=== PATIENT | female | born 1995 | race Caucasian/White ===

== ENCOUNTER 2016-12-08 14:36 | Emergency (ER) | payer BC, MEDICAID ==
[~2016-12-08] VITALS: Ht 157.5 cm; Wt 54.4 kg
[~2016-12-08 14:36] MED LIST: CIPR-173 PO; NAPR-607 PO; PRENTAB40 PO
[2016-12-08] MEDS ORDERED: ONDANSETRON HCL 4 MG/2 ML VIAL IV ONE (21:45)
[2016-12-08] MEDS ORDERED: SODIUM CHLORIDE 0.9% 1,000 ML IV ONE (21:45)
[2016-12-08] MEDS ORDERED: HYDROmorphone HCL 2 MG/ML VL IV ONE (21:45)
[2016-12-08] MEDS ORDERED: VANCOMYCIN 1GM/250ML D5W 250 ML IV ONE (21:45)
[2016-12-08 22:00] LABS: Basophils # (auto) 0 uL; Basophils % (auto) 0.6 % (0.0-2.0); Eosinophils # (auto) 0.2 uL; Eosinophils % (auto) 2.7 % (0.0-7.0); Hematocrit 31.6 % (36.0-46.0); Hemoglobin 10.2 g/dL (12.2-16.2); Lymphocytes % (auto) 27.2 % (10.0-50.0); Mean Corpuscular Hgb Conc. 32.2 g/dL (32.0-36.0); Mean Platelet Volume 7.7 fL (7.4-10.4); Monocytes # (auto) 0.7 uL; Monocytes % (auto) 9.8 % (0.0-12.0); Neutrophils # (auto) 4.3 uL; Neutrophils % (auto) 59.7 % (37.0-80.0); Platelet Count (auto) 356 10^3/uL (140-450); Red Cell Distribution Width 12.9 % (11.6-16.0); White Blood Cell 7.3 10^3/uL (4.4-10.8)
[2016-12-08 22:22] LABS: Albumin 3.1 g/dL (3.4-5.0); BUN/Creatinine Ratio 14.5; Bilirubin, Total 0.4 mg/dL (0.2-1.0); Calcium 8.6 mg/dL (8.5-10.1); Potassium 3.8 mmol/L (3.5-5.1); Total Protein 6.4 g/dL (6.4-8.2)
[2016-12-09 03:46] VITALS: BP 122/62
== END 2016-12-09 04:10 | disposition home or self-care (01) ==
LOC: EDBD 14:36 → ER 14:42
DX: L03.116 Cellulitis of left lower limb (principal); F17.210 Nicotine dependence, cigarettes, uncomplicated; Z88.1 Allergy status to other antibiotic agents; Z91.040 Latex allergy status; Z98.890 Other specified postprocedural states; Z91.09 Other allergy status, other than to drugs and biological substances
CPT/HCPCS: 36415; 73700; 80053; 85025; 96365; 96375; 99285; J1170; J2405; J3370

== ENCOUNTER 2016-12-16 20:40 | Emergency (ER) | payer MEDICAID ==
[~2016-12-16] VITALS: Ht 124.5 cm; Wt 57.6 kg
[2016-12-16 21:05] VITALS: BP 119/80
[2016-12-16 21:46] LABS: Basophils # (auto) 0 uL; Basophils % (auto) 0.3 % (0.0-2.0); Eosinophils # (auto) 0.1 uL; Eosinophils % (auto) 1.2 % (0.0-7.0); Hematocrit 36.3 % (36.0-46.0); Hemoglobin 11.5 g/dL (12.2-16.2); Lymphocytes # (auto) 2.2 uL; Lymphocytes % (auto) 23.3 % (10.0-50.0); Mean Corpuscular Hemoglobin 28.5 pg (28.0-32.0); Mean Corpuscular Hgb Conc. 31.7 g/dL (32.0-36.0); Mean Platelet Volume 7.7 fL (7.4-10.4); Monocytes # (auto) 0.8 uL; Monocytes % (auto) 8.4 % (0.0-12.0); Neutrophils # (auto) 6.3 uL; Neutrophils % (auto) 66.8 % (37.0-80.0); Platelet Count (auto) 508 10^3/uL (140-450); Red Cell Distribution Width 13.4 % (11.6-16.0); White Blood Cell 9.5 10^3/uL (4.4-10.8)
[2016-12-16 22:20] LABS: Albumin 3.8 g/dL (3.4-5.0); BUN/Creatinine Ratio 12.2; Calcium 9.1 mg/dL (8.5-10.1); Potassium 4.1 mmol/L (3.5-5.1)
[2016-12-16 22:22] LABS: Bilirubin, Total 0.3 mg/dL (0.2-1.0); Total Protein 7.5 g/dL (6.4-8.2)
== END 2016-12-17 03:30 | disposition left against medical advice (07) ==
LOC: ER 20:44
DX: R20.0 Anesthesia of skin (principal); Z53.21 Procedure and treatment not carried out due to patient leaving prior to being seen by health care provider
CPT/HCPCS: 36415; 80053; 83605; 85025; 85379; 87040

== ENCOUNTER 2016-12-17 07:14 | Emergency (ER) | payer MEDICAID ==
[~2016-12-17] VITALS: Ht 154.9 cm; Wt 57.6 kg
[2016-12-17 08:09] VITALS: BP 124/74
[2016-12-17] MEDS ORDERED: HYDROcodone-ACET 10/325MG TAB PO ONE (09:30)
== END 2016-12-17 11:29 | disposition home or self-care (01) ==
LOC: ER 07:24
DX: L03.116 Cellulitis of left lower limb (principal); Z88.1 Allergy status to other antibiotic agents; Z91.040 Latex allergy status; F17.210 Nicotine dependence, cigarettes, uncomplicated
CPT/HCPCS: 93971

== ENCOUNTER 2018-12-04 15:50 | Emergency (ER) | payer BC, MEDICAID ==
[~2018-12-04] VITALS: Ht 157.5 cm; Wt 68.0 kg
[~2018-12-04 15:50] MED LIST changes: -NAPR-607 PO; +NAPR500T31 PO
[2018-12-04 16:36] LABS: Basophils # (auto) 0 uL; Basophils % (auto) 0.6 % (0.0-2.0); Eosinophils # (auto) 0.1 uL; Eosinophils % (auto) 1.8 % (0.0-7.0); Hematocrit 42.2 % (36.0-46.0); Hemoglobin 14.2 g/dL (12.2-16.2); Lymphocytes # (auto) 1.8 uL; Lymphocytes % (auto) 23.5 % (10.0-50.0); Mean Corpuscular Hemoglobin 30.4 pg (28.0-32.0); Mean Corpuscular Hgb Conc. 33.5 g/dL (32.0-36.0); Mean Corpuscular Volume 90.7 fL (80.0-100.0); Monocytes # (auto) 0.8 uL; Monocytes % (auto) 10.4 % (0.0-12.0); Neutrophils # (auto) 4.8 uL; Neutrophils % (auto) 63.7 % (37.0-80.0); Nucleated Red Blood Cells % 0.1 %; Platelet Count (auto) 290 10^3/uL (140-450); Red Blood Cells 4.65 10^6/uL (4.0-5.20); Red Cell Distribution Width 13.7 % (11.8-14.3); White Blood Cell 7.5 10^3/uL (4.4-10.8)
[2018-12-04 18:16] VITALS: BP 113/74
[2018-12-04 18:48] LABS: Urine Bacteria FEW /hpf (None Seen); Urine Blood 2+ /uL (Negative); Urine Mucus FEW (None Seen); Urine Specific Gravity 1.022 (1.001-1.035); Urine WBC 1 /hpf (0 - 5)
== END 2018-12-04 18:00 | disposition home or self-care (01) ==
LOC: ER 15:54
DX: O20.9 Hemorrhage in early pregnancy, unspecified (principal); O99.331 Smoking (tobacco) complicating pregnancy, first trimester; Z3A.01 Less than 8 weeks gestation of pregnancy; Z88.1 Allergy status to other antibiotic agents; Z88.6 Allergy status to analgesic agent; Z91.040 Latex allergy status
CPT/HCPCS: 36415; 81001; 84702; 85025

== ENCOUNTER 2019-01-20 13:39 | Emergency (ER) | payer SELFPAY ==
[~2019-01-20] VITALS: Ht 157.5 cm; Wt 70.3 kg
[2019-01-20 14:10] VITALS: BP 118/75
[2019-01-20 14:27] LABS: Basophils # (auto) 0 uL; Basophils % (auto) 0.8 % (0.0-2.0); Eosinophils # (auto) 0.1 uL; Eosinophils % (auto) 1.6 % (0.0-7.0); Hematocrit 41.8 % (36.0-46.0); Hemoglobin 13.9 g/dL (12.2-16.2); Lymphocytes # (auto) 1.6 uL; Lymphocytes % (auto) 25.3 % (10.0-50.0); Mean Corpuscular Hgb Conc. 33.3 g/dL (32.0-36.0); Mean Corpuscular Volume 93.2 fL (80.0-100.0); Monocytes # (auto) 0.9 uL; Monocytes % (auto) 13.6 % (0.0-12.0); Neutrophils # (auto) 3.8 uL; Neutrophils % (auto) 58.7 % (37.0-80.0); Nucleated Red Blood Cells % 0.1 %; Platelet Count (auto) 280 10^3/uL (140-450); Red Blood Cells 4.48 10^6/uL (4.0-5.20); Red Cell Distribution Width 13.6 % (11.8-14.3); White Blood Cell 6.4 10^3/uL (4.4-10.8)
[2019-01-20 14:45] LABS: Albumin 3.8 g/dL (3.4-5.0); BUN/Creatinine Ratio 10.4; Potassium 3.7 mmol/L (3.5-5.1)
[2019-01-20 14:47] LABS: Bilirubin, Total 0.7 mg/dL (0.2-1.0); Total Protein 7.8 g/dL (6.4-8.2)
== END 2019-01-20 17:40 | disposition home or self-care (01) ==
LOC: ER 13:39
DX: O20.0 Threatened abortion (principal); Z3A.01 Less than 8 weeks gestation of pregnancy; Z88.1 Allergy status to other antibiotic agents; Z91.040 Latex allergy status
CPT/HCPCS: 36415; 76801; 76817; 80053; 84702; 85025

== ENCOUNTER 2019-02-13 22:48 | Emergency (ER) | payer BC, MEDICAID ==
[~2019-02-13] VITALS: Ht 157.5 cm; Wt 70.3 kg
[2019-02-13 23:32] LABS: Basophils # (auto) 0 uL; Basophils % (auto) 0.5 % (0.0-2.0); Eosinophils # (auto) 0.2 uL; Eosinophils % (auto) 2.1 % (0.0-7.0); Hematocrit 41.5 % (36.0-46.0); Hemoglobin 13.8 g/dL (12.2-16.2); Lymphocytes # (auto) 2.7 uL; Lymphocytes % (auto) 30.2 % (10.0-50.0); Mean Corpuscular Hemoglobin 30.8 pg (28.0-32.0); Mean Corpuscular Hgb Conc. 33.3 g/dL (32.0-36.0); Mean Corpuscular Volume 92.7 fL (80.0-100.0); Monocytes % (auto) 10.8 % (0.0-12.0); Neutrophils % (auto) 56.4 % (37.0-80.0); Nucleated Red Blood Cells % 0.1 %; Platelet Count (auto) 273 10^3/uL (140-450); Red Blood Cells 4.48 10^6/uL (4.0-5.20); Red Cell Distribution Width 13.3 % (11.8-14.3); White Blood Cell 8.9 10^3/uL (4.4-10.8)
[2019-02-13 23:48] LABS: INR 0.98 (0.9-1.15); Prothrombin Time 10.5 sec (9.27-12.13)
[2019-02-13 23:51] LABS: Albumin 3.5 g/dL (3.4-5.0); Calcium 9.1 mg/dL (8.5-10.1); Potassium 3.6 mmol/L (3.5-5.1)
[2019-02-13 23:53] LABS: BUN/Creatinine Ratio 9.2
[2019-02-13 23:57] LABS: Bilirubin, Total 0.4 mg/dL (0.2-1.0)
[2019-02-13 23:58] VITALS: BP 130/79
[2019-02-14] MEDS ORDERED: HYDROcodone-ACET 10/325MG TAB PO ONE (00:45)
[2019-02-14 01:35] LABS: Urine Bacteria FEW /hpf (None Seen); Urine Blood Negative /uL (Negative); Urine Mucus FEW (None Seen); Urine Specific Gravity 1.029 (1.001-1.035); Urine WBC 6 /hpf (0 - 5)
== END 2019-02-14 01:24 | disposition home or self-care (01) ==
LOC: ER 22:52
DX: O03.4 Incomplete spontaneous abortion without complication (principal)
CPT/HCPCS: 36415; 80053; 81001; 84702; 85025; 85610; 85730; 86850; 86900; 86901

== ENCOUNTER 2019-03-09 20:54 | Day surgery (SDC) | payer MEDICAID ==
[~2019-03-09] VITALS: Ht 157.5 cm; Wt 67.1 kg
[2019-03-09 22:04] LABS: Basophils # (auto) 0.1 uL; Basophils % (auto) 0.5 % (0.0-2.0); Eosinophils # (auto) 0 uL; Eosinophils % (auto) 0.3 % (0.0-7.0); Hemoglobin 13.1 g/dL (12.2-16.2); Lymphocytes # (auto) 2.8 uL; Lymphocytes % (auto) 18.3 % (10.0-50.0); Mean Corpuscular Hemoglobin 29.9 pg (28.0-32.0); Mean Corpuscular Hgb Conc. 32.7 g/dL (32.0-36.0); Mean Corpuscular Volume 91.4 fL (80.0-100.0); Monocytes # (auto) 1.5 uL; Monocytes % (auto) 9.6 % (0.0-12.0); Neutrophils # (auto) 10.9 uL; Neutrophils % (auto) 71.3 % (37.0-80.0); Platelet Count (auto) 416 10^3/uL (140-450); Red Blood Cells 4.38 10^6/uL (4.0-5.20); Red Cell Distribution Width 12.9 % (11.8-14.3); White Blood Cell 15.3 10^3/uL (4.4-10.8)
[2019-03-09] MEDS ORDERED: SODIUM CHLORIDE 0.9% 1,000 ML IV ONE (22:15)
[2019-03-09 22:18] LABS: Potassium 3.1 mmol/L (3.5-5.1)
[2019-03-09 22:26] LABS: Albumin 4.3 g/dL (3.4-5.0); BUN/Creatinine Ratio 12.3; Bilirubin, Total 0.6 mg/dL (0.2-1.0); Calcium 9.4 mg/dL (8.5-10.1); Total Protein 7.9 g/dL (6.4-8.2)
[2019-03-09 22:29] LABS: INR 1.04 (0.9-1.15); Partial Thromboplastin Time 29.2 sec (23.78-33.04); Prothrombin Time 11.1 sec (9.27-12.13)
[2019-03-10] MEDS ORDERED: SODIUM CHLORIDE 0.9% 1,000 ML IV ONE (02:45)
[2019-03-10] MEDS ORDERED: ONDANSETRON HCL 4 MG/2 ML VIAL IV ONE ×3 (03:30→11:45)
[2019-03-10] MEDS ORDERED: MORPHINE SULFATE 4 MG/ML SYR/VIAL IV ONE (03:30)
[2019-03-10] MEDS ORDERED: OXYTOCIN 30 UNT in LACTATED RINGER'S 1,000 ML IV ONE (05:45)
[2019-03-10] MEDS ORDERED: MORPHINE SULF INJ 2 MG/ML SYRINGE 1ML IV ONE (07:15)
[2019-03-10 07:34] LABS: Urine Bacteria NONE SEEN /hpf (None Seen); Urine Blood 3+ /uL (Negative); Urine Mucus MODERATE (None Seen); Urine Specific Gravity 1.029 (1.001-1.035); Urine WBC 202 /hpf (0 - 5); Urine WBC Clumps PRESENT /hpf (None Seen)
[2019-03-10] MEDS ORDERED: ceFAZolin 1GM/50ML 50 ML IV ONE (09:46)
[2019-03-10] MEDS ORDERED: LEVOFLOXACIN 500MG 100 ML IV ONE (10:50)
[2019-03-10] MEDS ORDERED: fentaNYL CITRATE 100 MCG/2 ML VL ONE (10:59)
[2019-03-10] MEDS ORDERED: MIDAZOLAM HCL 1MG/1ML-2 ML VIAL ONE (10:59)
[2019-03-10] MEDS ORDERED: PROPOFOL 10 MG/ML 20 ML IV ONE (11:04)
[2019-03-10] MEDS ORDERED: RHO (D) IMMUNE GLOBULIN 300 MCG INJ IM PRN (11:30)
[2019-03-10] MEDS ORDERED: ONDANSETRON HCL 4 MG/2 ML VIAL IV PRN (11:30)
[2019-03-10] MEDS ORDERED: hydrALAZINE HCL 20 MG/ML VL IV PRN (11:45)
[2019-03-10] MEDS ORDERED: ePHEDrine SULFATE 50 MG/ML AMP IV PRN (11:45)
[2019-03-10] MEDS ORDERED: fentaNYL CITRATE 100 MCG/2 ML VL IV ONE (12:00)
[2019-03-10 12:33] VITALS: BP 116/69
== END 2019-03-10 12:43 | disposition home or self-care (01) ==
LOC: EDBD 20:54 → EDUNIT# 20:54 → ER 21:05 → SUR 03-10 09:13 → ER 03-10 09:13 → SUR 03-10 12:43
PROVIDERS: ATTEND Specialist
DX: O03.1 Delayed or excessive hemorrhage following incomplete spontaneous abortion (principal); F41.9 Anxiety disorder, unspecified; F32.9 Major depressive disorder, single episode, unspecified; Z87.59 Personal history of other complications of pregnancy, childbirth and the puerperium; Z88.8 Allergy status to other drugs, medicaments and biological substances; Z88.1 Allergy status to other antibiotic agents; Z91.040 Latex allergy status; Z87.891 Personal history of nicotine dependence; Z72.89 Other problems related to lifestyle; Z82.49 Family history of ischemic heart disease and other diseases of the circulatory system; Z83.3 Family history of diabetes mellitus
CPT/HCPCS: 36415; 59812; 76801; 76817; 80053; 81001; 84702; 85014; 85018; 85025; 85610; 85730; 86850; 86900; 86901; 88305; J0690; J1956; J2250; J2270; J2405; J2704; J3010; J7030

== ENCOUNTER 2019-04-04 13:17 | Emergency (ER) | payer MEDICAID, OTHER ==
[~2019-04-04] VITALS: Ht 157.5 cm; Wt 68.0 kg
[2019-04-04 13:20] VITALS: BP 131/80
[2019-04-04] MEDS ORDERED: MEPERIDINE HCL (50 MG/ML) 1 ML VIAL IM ONE (14:15)
[2019-04-04] MEDS ORDERED: PROMETHAZINE HCL 25 MG/ML 1ML IM ONE (14:15)
[2019-04-04] MEDS ORDERED: MEPERIDINE HCL (25 MG/ML) 1ML VIAL IM ONE ×2 (14:30)
== END 2019-04-04 15:18 | disposition home or self-care (01) ==
LOC: ER 13:17
DX: M54.5 Low back pain (principal); G89.29 Other chronic pain; Z88.0 Allergy status to penicillin; Z88.8 Allergy status to other drugs, medicaments and biological substances; Z91.040 Latex allergy status; Z79.899 Other long term (current) drug therapy
CPT/HCPCS: 96372; 99283; J2175; J2550

== ENCOUNTER 2019-04-06 23:51 | Emergency (ER) | payer OTHER ==
[~2019-04-06] VITALS: Ht 157.5 cm; Wt 68.0 kg
[2019-04-06 23:59] VITALS: BP 136/87
[2019-04-07] MEDS ORDERED: MEPERIDINE HCL (25 MG/ML) 1ML VIAL IM ONE (01:45)
[2019-04-07] MEDS ORDERED: ONDANSETRON ODT 4 MG TAB PO ONE (01:45)
== END 2019-04-07 02:21 | disposition home or self-care (01) ==
LOC: ER 23:51
DX: G89.29 Other chronic pain (principal); M54.5 Low back pain; R51 Headache; M54.2 Cervicalgia; Z87.891 Personal history of nicotine dependence; Z88.1 Allergy status to other antibiotic agents; Z91.040 Latex allergy status
CPT/HCPCS: 96372; 99283; J2175; Q0162

== ENCOUNTER 2019-06-01 13:45 | Emergency (ER) | payer MEDICAID, OTHER ==
[~2019-06-01] VITALS: Ht 157.5 cm; Wt 60.8 kg
[2019-06-01 18:48] LABS: Urine WBC None Seen /hpf (0 - 5)
[2019-06-01 19:20] LABS: Urine Bacteria NONE SEEN /hpf (None Seen); Urine Blood Negative /uL (Negative); Urine Specific Gravity 1.024 (1.001-1.035); Urine Sperm PRESENT /hpf (None Seen)
[2019-06-01] MEDS ORDERED: SODIUM CHLORIDE 0.9% 1,000 ML IV ONE (21:00)
[2019-06-01 21:27] LABS: Basophils # (auto) 0 uL; Basophils % (auto) 0.4 % (0.0-2.0); Lymphocytes # (auto) 2.1 uL; Neutrophils # (auto) 5.4 uL; White Blood Cell 8.5 10^3/uL (4.4-10.8)
[2019-06-01 21:29] LABS: Eosinophils # (auto) 0.1 uL; Eosinophils % (auto) 0.6 % (0.0-7.0); Hematocrit 32.2 % (36.0-46.0); Hemoglobin 10.3 g/dL (12.2-16.2); Lymphocytes % (auto) 24.3 % (10.0-50.0); Mean Corpuscular Hemoglobin 24.4 pg (28.0-32.0); Mean Corpuscular Hgb Conc. 31.9 g/dL (32.0-36.0); Mean Corpuscular Volume 76.4 fL (80.0-100.0); Monocytes % (auto) 11.7 % (0.0-12.0); Platelet Count (auto) 298 10^3/uL (140-450); Red Blood Cells 4.22 10^6/uL (4.0-5.20); Red Cell Distribution Width 19.5 % (11.8-14.3)
[2019-06-01 21:39] VITALS: BP 109/58
[2019-06-01 21:51] LABS: Albumin 3.5 g/dL (3.4-5.0); BUN/Creatinine Ratio 15.9; Calcium 8.6 mg/dL (8.5-10.1); Potassium 3.3 mmol/L (3.5-5.1)
[2019-06-01 21:53] LABS: Bilirubin, Total 0.2 mg/dL (0.2-1.0)
== END 2019-06-01 23:56 | disposition home or self-care (01) ==
LOC: ER 13:45
DX: O26.891 Other specified pregnancy related conditions, first trimester (principal); O99.331 Smoking (tobacco) complicating pregnancy, first trimester; R10.9 Unspecified abdominal pain; Z3A.01 Less than 8 weeks gestation of pregnancy
CPT/HCPCS: 36415; 76801; 80053; 81001; 81025; 84702; 85025; 99284; J7030